=== PATIENT | female | born 2005 | race Two or more races ===

== ENCOUNTER 2024-10-05 07:21 | Outpatient (AMB) | payer OTHER, SELFPAY ==
[2024-10-05 07:25] VITALS: BP 98/60; BMI 33.2
--- NOTE | 2024-10-05 07:25 | MHC.OFFVIS ---
Vital Signs 10/05/24 07:25 Height 5 ft Weight 170 lb BMI 33.2 BP 98/60 Intake Visit Reasons: control consult Caustic Loader Required: No Information Interpreted: non-clinical & clinical Accompanied by: Self / Same As Patient Allergies No Known Allergies Allergy (Verified 10/05/24 07:27) Is last menstrual period known: Yes Last menstrual period: 08/17/24 HPI Comments Details: Presenting discuss different options of control. 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[employer] [place] Sexually active: Yes Sexual orientation: Straight/Heterosexual Gender identity: Female Female Reproductive History Menstrual Age of Menarche: 7 Duration of menses: 8-10 days Date of last menstrual period: 08/17/24 control method: implanted Total pregnancies: 0 Review of Systems Const All systems reviewed & are unremarkable except as noted in HPI and below Physical Exam Vital Signs: Last Vital Signs BP 98/60 10/05/24 07:25 BMI result Body Mass Index 33.2 General: Yes no CVA tenderness External Female Exam: normal external appearance and normal appearance of the urethra Speculum Exam - Vagina: normal appearance of the vagina, normal palpation, no lesions and no masses Speculum Exam - Cervix: normal appearance of the cervix, normal palpation, no lesions, no masses and nontender Bimanual exam- vagina & uterus: normal bimanual exam, normal palpation, uterine size normal, normal palpation, uterine shape normal, No Cervical tenderness present and non-tender Bimanual Exam- Adnexa, other: normal adnexae Back/Spine/Pelvis Back: no CVA tenderness Results AMB Test Urine AMB Test Urine Negative Last Edit by Nancie Stewart CMA on 10/05/24 07:39 Results Reviewed Results Reviewed: Laboratory Last Values Tst Clinic Negative 10/05/24 07:38 Assessment & Plan Assessment & Plan (1) Family planning: Code(s): Z30.09 - Encounter for other general counseling and advice on contraception Category: Social Hx Plan: Discussed with the patient the different options of control including control pills/Nuvaring, DMPA, different types of IUD ?s ( cu vs progesterone) , sterilization. All the pros, cons, risks and benefits of each were discussed with the patient. The patient decided to go ahead with Mirena IUD, so a more detailed discussion was carried on including mechanism of action, risks (infection, uterine perforation, failure with ectopic , septic AB, ovarian cyst and pelvic pain, increased breast cancer risk and others) benefits (efficient contraceptive method, others), GC/CG were taken and the patient was asked to schedule Nexplanon removal/Mirena IUD insertion prior to expiration date of her Nexplanon in October 2024. All questions answered, the patient verbalized understanding Orders: Orders AMB HCG Urine Test Today Z32.02 - Encounter for test, result negative Coding Level of Care Code New Pt Level 3 (70097) Diagnoses Family planning Z30.09
== END 2024-10-05 08:03 | disposition home or self-care (01) ==
LOC: HO.HWS 07:21
PROVIDERS: Visit Provider Obstetrics & Gynecology
DX: Z32.02 Encounter for pregnancy test, result negative (principal); Z30.09 Encounter for other general counseling and advice on contraception
CPT/HCPCS: 99203

== ENCOUNTER 2024-10-05 07:21 | Outpatient (REF) | payer OTHER, SELFPAY ==
[2024-10-06 15:31] LABS: CT PCR NOT DETECTED (Not Detect.); NG PCR NOT DETECTED (Not Detect.)
== END 2024-10-05 07:22 | disposition home or self-care (01) ==
LOC: HO.LNP 07:21
PROVIDERS: Visit Provider Obstetrics & Gynecology
DX: Z30.09 Encounter for other general counseling and advice on contraception (principal); Z32.02 Encounter for pregnancy test, result negative
CPT/HCPCS: 81025; 87491; 87591

== ENCOUNTER 2024-10-13 15:34 | Outpatient (AMB) | payer OTHER, SELFPAY ==
--- OUTSIDE RECORDS SUMMARY | 2024-10-13 15:36 | XMS_ITS ---
Author Name [facility] Organization Unknown Care Team Organization Name Specialty Phone Email Start Date End Da te [facility] Dafne Alvarenga MD Primary Care 05/28/2022 11/09/2023 [facility] Termed, PROVIDER Primary Care 01/28/202210/21
--- NOTE | 2024-10-13 15:43 | A.OFFVIS_ITS ---
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 The following possible complications were discussed with the patient: Intrauterine , Ectopic , Sepsis, Pelvic Infection, Irregular Bleeding and Amenorrhea, Perforation, Expulsion, Ovarian Cysts, Breast Cancer, The following adverse effects were discussed with the patient: alteration of menstrual bleeding pattern, including: unscheduled uterine bleeding decreased uterine bleeding increased scheduled uterine bleeding female genital tract bleeding ,amenorrhea , genital discharge , vulvovaginitis , breast pain , benign ovarian cyst and associated complications , dysmenorrhea , Gastrointestinal disorders abdominal/pelvic pain, headache/migraine , back pain , acne , depression Alternative options were discussed with the patient including but not limited: control pills, patch, NuvaRing, Depo-medroxyprogesterone acetate, Nexplanon, copper IUD, sterilization, vasectomy, others The procedure was explained in detail to patient , at the end patient signed the informed consent obtained. A no touch technique was used throughout the procedure. A speculum was placed into vagina and cervix was cleaned with betadine). A tenaculum was placed. A plastic sound was advanced through the external and internal os until it reached the fundus of the uterus, the depth was 8 cm. The sound was then withdrawn. The IUD was loaded in a sterile manner and advanced into position. The string was visualized and cut to 3 cm. Tenaculum site hemostatic. All instruments removed from vagina. Patient tolerated the procedure well. NO complications were noted. Patient was instructed to call for fever over 100.4, significant pain unrelieved by Motrin, IUD expulsion, heavy bleeding, or abnormal discharge. In addition, the following clinical considerations were discussed with the patient to call for removal: A stroke or heart attack ,Very severe or migraine headaches ,Unexplained fever ,Yellowing of the skin or whites of the eyes, as these may be signs of serious liver problems , or suspected , Pelvic pain or pain during sex ,HIV positive seroconversion in herself or her partner , Possible exposure to sexually transmitted infections Unusual vaginal discharge or genital sores , severe vaginal bleeding or bleeding that lasts a long time, or if she misses a menstrual period, Inability to feel Mirena's threads Counseled the patient that the IUD does not protect against STI's, recommended use of condoms for the first 7 days post insertion and explained to the patient that condoms are recommended for patients at risk for sexually transmitted infections. Informed the patient that Mirena IUD is FDA approved for 8 years for contraception for 5 years for the treatment of heavy menses Instructed the patient to schedule a Follow up appointment in 4 to 6 weeks following insertion. This note was generated with a voice recognition program. Some errors may have been overlooked during the review of this note. Sometimes these errors may affect the content or meaning of a given sentence. 51550-DUD Insertion Procedure code (CPT) selection complete Contraception Insert/Removal Details Details: Counseling/Consent: After discussing with the patient the risks of the procedure including bleeding, infection, scar tissue formation, , possible injury to blood vessels or nerves, chronic arm pain, blood transfusion, and irregular unpredictable bleeding Preopdx: Requesting Nexplanon removal Op: Nexplanon Removal Post op dx: same EBL= 10 cc Procedure: After discussing with the patient the risks of the procedure including bleeding, infection, scar tissue formation, the patient signed the consent and agreed with the plan; all questions answered. The patient was then put in the dorsal supine position with Left arm in which Nexplanon is located exposed. Then the area was scrubbed with betadine. Nexplanon was located next by palpation and the end closest to the elbow was marked with a sterile marker. 5cc 1% Xylocaine was used to anesthetize the area at the site near the tip of Nexplanon. Next, a 3 mm incision in the longitudinal direction of the arm at the tip of the implant was made and the Nexplanon was pushed toward the incision until the tip was visible. The implant was grasped with a curved mosquito forceps and pulled out gently. Then incision was closed with steri-strips approximating the edges and an adhesive bandage was applied. A pressure bandage was applied with sterile gauze to minimize bruising. At the end explained to the patient that she is not covered with contraception anymore and recommended for her to use another contraceptive method. Discharge instructions: Patient was instructed to call if any of the following occurs :temperature above 100.4, pain at the side of the incision, redness, discharge or gapping, arm pain or bleeding. All questions answered patient verbalized understanding . This note was generated with a voice recognition program. Some errors may have been overlooked during the review of this note. Sometimes these errors may affect the content or meaning of a given sentence. 64628 - Removal Office Meds Mirena 21 mcg/24 hr (up to 8 years) 52 mg intrauterine device Performing Provider: Trent Biggs MD [place] [facility] [place] [facility] Documented (not given) by: Trent Biggs MD on 10/13/24 16:08 Dose Route Admin Location Dispensed Lot Number Expiration Date NDC Product Ambassador 1 device intrauterine ea Total Dispensed Waste n/a n/a Assessment & Plan Assessment & Plan (1) Nexplanon removal: Code(s): Z30.46 - Encounter for surveillance of implantable subdermal contraceptive Category: Medical Plan: Nexplanon removed, see procedure (2) Encounter for insertion of Mirena IUD: Code(s): Z30.430 - Encounter for insertion of intrauterine contraceptive device Category: Medical Plan: Mirena IUD inserted, see procedure Orders: Orders AMB IUD Insertion/Removal - Practice Supplied Today Z30.430 - Encounter for insertion of intrauterine contraceptive device Medications: New Mirena (levonorgestrel) 1 device intrauterine ONCE 1 ea 0RF Mirena IUD insertion NS Z30.430 - Encounter for insertion of intrauterine contraceptive device Coding Level of Care Code Procedure Only Diagnoses Nexplanon removal Z30.46 Encounter for insertion of Mirena IUD Z30.430 CPT Codes Details - CPT: 22939-LSA Insertion ([id number]) Details - Contraception: 06738 - Removal ([id number])
== END 2024-10-13 16:10 | disposition home or self-care (01) ==
LOC: HO.HWS 15:34
PROVIDERS: Visit Provider Obstetrics & Gynecology
DX: Z30.46 Encounter for surveillance of implantable subdermal contraceptive (principal); Z30.430 Encounter for insertion of intrauterine contraceptive device
CPT/HCPCS: 11982; 58300

== ENCOUNTER → 2024-10-13 15:34 | Outpatient (BNVA) | payer OTHER, SELFPAY | PROVIDERS: Visit Provider Obstetrics & Gynecology | DX: Z30.430 Encounter for insertion of intrauterine contraceptive device (principal) | CPT/HCPCS: 11982; 58300; J7298 ==

== ENCOUNTER 2024-12-02 08:28 | Outpatient (AMB) | payer OTHER, SELFPAY ==
--- NOTE | 2024-12-02 08:29 | A.OFFPC_ITS ---
Vital Signs 12/02/24 08:44 Height 5 ft 1.18 in Weight 176 lb 6 oz BMI 33.1 BP 110/78 Blood Pressure Location Lt brachial Position Sitting Respiration 16 Pulse 90 Pulse Source Pulse Oximeter Temp 98.1 F Temp Source Oral Pulse Oximetry (%) 98 Oxygen Delivery Method Room Air Intake Visit Reasons: SIGNALS ANALYST-Anxiety Intake Note: pt here today to treat anxiety she gets anxious in the mornings and end up throwing up. Adolescent Medicine Specialist Required: No Accompanied by: Self / Same As Patient Allergies No Known Allergies Allergy (Verified 12/02/24 08:30) Tobacco use date assessed: 12/02/24 Dental Screening Dental Screen Date: 12/02/24 Did you have a dental visit in the last 12 months?: Yes Did you have a dental problem in the last 6 months where you did not have access to dental care?: No Was dental information given to patient?: Patient has dentist HPI HPI Comments History of Present Illness Details History of Present Illness The patient is a 19 year old female presenting with increased anxiety symptoms. Generalized Anxiety Disorder: - Long-standing anxiety with recent wors ening, impacting daily functioning. - Symptoms have increased due to changes in workplace environment and personal relationship stress. Possible Bipolar Disorder: - Describes mood instability, sleep dist urbances, episodes of high energy, and irritability suggesting mood disorder history. Health Maintenance - Chlamydia and gonorrhea screening nega tive as of 10/05/2024. - Transitioned from Nexplanon to Mirena IUD. Review of Systems - Psychiatric: Reports significant anxie ty and depressive symptoms. 10-point ROS reviewed and negative excep t as noted in HPI Allergies - Reports childhood allergy to Robitussi n. Medications Medication History - Limited therapy with one in-person the rapist and one remote therapist. - Previously noncompliant or minimal eng agement due to personal discomfort with treatment types. Current Substance Use Substance Use History Past Medical History - Generalized Anxiety Disorder - Possible Bipolar Disorder Past Surgical History Family History - Mother: Hypertension, Bipolar Disorder (suspected) - Maternal Grandmother: Diabetes, Heart Disease - Uncle: Possibly diagnosed with Bipolar Disorder Social History - Never used tobacco. 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 - Lives with parents and brother. - Stress from a previous job in [employer] to workplace bullying and issues with a prior relationship. Physical Exam General: No apparent distress. Alert and oriented x 3. Head: Normocephalic, atraumatic Eyes: Pupils equal, round, and reactive to light. Extraocular movements intact Throat: Clear. No abnormalities noted. ropharynx clear. Mucus membranes moist Neck: Supple. No lymphadenopathy. eft anterior descending artery distention. No jugular vein distention. No bruit. Cardiovascular: Regular rate and rhythm. Normal S1 and S2. No murmurs. murmurs, rubs, or gallops Lungs: Clear to auscultation bilaterally. Breath sounds equal bilaterally. No rales, ronchi, or wheezes. Abdomen: Non-tender. Non-distended. Bowel sounds auscultated. No masses or organomegaly. hepatosplenomegaly. No mass/rebound/guarding Extremities: No cyanosis, clubbing, or edema. lubbing, cyanosis, and edema. 2+ pulses Neuro: Cranial nerves II-XII grossly intact. Motor/sensory intact. Reflexes 2+. Gait normal. Skin: Warm, dry, and intact. No rash. Discussion Notes A comprehensive discussion with the patient addressed the exacerbation of anxiety symptoms, potential bipolar disorder, and her reservations about medication due to maternal experiences. I proposed a referral to behavioral health for further bipolar disorder evaluation and possible initiation of appropriate therapy. I explained the temporary use of benzodiazepines, such as 0.5 mg for acute anxiety relief, and recommended routine laboratory testing to establish baseline health parameters. Plan 1. Generalized Anxiety Disorder - Referral for cognitive behavioral ther apy. - Temporary benzodiazepine prescription for acute anxiety management. 2. Possible Bipolar Disorder - Behavioral health referral for further psychiatric evaluation. Treatment Summary Anticapatory Guidance - Engage in stress-reducing activities a nd improve sleep hygiene. - Reach out to behavioral health to ensu re mental health needs are being addressed. Patient Instructions - Download and use relaxation aids or ap ps for anxiety reduction. - Report any significant changes in mood or behavior immediately. - Follow through with all laboratory brian ts and scheduled appointments. - Avoid self-medicating or making any ab rupt changes to routine without consultation. - Stay in communication with your suppor t system about your emotional well- being. [facility] Family History (Updated 12/02/24 @ 08:42 by Jailene Ramirez MA) Mother HTN (hypertension) Maternal Grandfather Diabetes Maternal Grandmother Heart disease Paternal Grandfather Diabetes Father No problems noted. Social History Household Members: Family Housing: House Alcohol intake: current Alcohol intake frequency: holidays/special occasions only Patient Tobacco Use Status: Current someday Tobacco user Cigarettes Per Day: 1 Substance Use Type: Marijuana service: No Current occupational status: employed Sexual orientation: Straight/Heterosexual Gender identity: Female Cognitive needs: No Hearing needs: No Vision needs: No Female Reproductive History Menstrual Age of Menarche: 7 Questionnaire PHQ-9 Over the last 2 weeks, how often have you been bothered by any of the following problems? 1. Little interest or pleasure in doing things: not at all 2. Feeling down, depressed, or hopeless: not at all 3. Trouble falling or staying asleep, or sleeping too much: not at all 4. Feeling tired or having little energy: not at all 5. Poor appetite or overeating: not at all 6. Feeling bad about yourself - or that you are a failure or have let yourself or your family down: not at all 7. Trouble concentrating on things, such as reading the newspaper or watching television: not at all 8. Moving or speaking so slowly that other people could have noticed. Or the opposite - being so fidgety or restless that you have been moving around a lot more than usual: not at all 9. Thoughts that you would be better off or of hurting yourself in some way: not at all Total score: 0 Source: Developed by Drs. Saqib Whittington, Quyen Anaya, Kenney Joiner and colleagues, with an educational elo from [employer]. Thrive Questionnaire Date Thrive assessed: 11/29/24 I am a: Patient What is your living situation today?: I have a steady place to live Within the past 12 months, did the food you bought not last and you didn't have the money to get more?: I choose not to answer this question Within the past 12 months, did you worry whether your food would run out before you got money to buy more?: I choose not to answer this question Do you have trouble paying for medicines?: No Do you have trouble getting transportation to medical appointments?: No Do you have trouble paying your heating and electricity bill?: No Do you have trouble taking care of your child, family member or friend?: No Do you have trouble with day-to-day activities such as bathing, preparing meals, shopping, managing finances, etc.?: No Are you currently unemployed and looking for a job?: No Are you interested in more education?: Yes Please select the resources that you would like help with: Education Currently or been in a relationship where the following occur: I choose not to answer THRIVE Score: 0 AUDIT C Alcohol Use Questionnaire (AUDIT-C) 1. How often do you have a drink containing alcohol?: Monthly or less 2. How many drinks containing alcohol do you have on a typical day when you are drinking?: 3 or 4 3. How often do you have six or more drinks on one occasion?: Less than monthly Total Score: 3 SHAYAN-7 AMB Questionnaire SHAYAN-7 Date SHAYAN - 7 assessed: 12/02/24 Feeling nervous, anxious, or on edge: 3 = Nearly every day Not being able to stop or control worryin = Nearly every day Worrying too much about different things: 3 = Nearly every day Trouble relaxin = Nearly every day Being so restless that it is hard to sit still: 3 = Nearly every day Becoming easily annoyed or irritable: 3 = Nearly every day Feeling afraid as if something awful might happen: 3 = Nearly every day Total SHAYAN-7 score (0-4 normal; 5-9 mild; 10-14 moderate; 15-21 severe): 21 Source: Developed by Drs. Saqib Whittington, Quyen Anaya, Kenney Joiner and colleagues, with an educational elo from [employer]. SHAYAN-7 Assessment Billing SHAYAN-7 Assessment Tool: SHAYAN-7 Assessment 70356 Physical exam (Primary Care) Tobacco/Smoking Status: Tobacco use Status Tobacco use date assessed 12/02/24 12/02/24 08:35 Patient Tobacco Use Status Never used Tobacco 12/02/24 08:35 PHQ-9: PHQ-9 Score PHQ-9: Total score 0 12/02/24 08:35 Thrive Assessment: Date of Thrive Assessment Date Thrive assessed 11/29/24 12/02/24 08:35 Currently or been in a relationship where the following occur: I choose not to answer Coding Level of Care Code New Pt Level 3 (39603) Diagnoses Encounter to establish care with new provider Z76.89 Routine lab draw Z01.89 Encounter for screening, unspecified Z13.9 Hypertension screen Z13.6 Screening for HIV (human immunodeficiency virus) Z11.4 Screening for depression Z13.31 Screening for diabetes mellitus Z13.1 Screening for lipoid disorders Z13.220 Adjustment disorder with anxiety F43.22 Additional Codes SHAYAN-7 Assessment Billing - SHAYAN-7 Assessment Tool: SHAYAN-7 Assessment 41648 ([id number]) Assessment & Plan Assessment & Plan (1) Encounter to establish care with new provider: Code(s): Z76.89 - Persons encountering health services in other specified circumstances (2) Routine lab draw: Code(s): Z01.89 - Encounter for other specified special examinations (3) Encounter for screening, unspecified: Code(s): Z13.9 - Encounter for screening, unspecified (4) Hypertension screen: Code(s): Z13.6 - Encounter for screening for cardiovascular disorders (5) Screening for HIV (human immunodeficiency virus): Code(s): Z11.4 - Encounter for screening for human immunodeficiency virus [HIV] (6) Screening for depression: Code(s): Z13.31 - Encounter for screening for depression (7) Screening for diabetes mellitus: Code(s): Z13.1 - Encounter for screening for diabetes mellitus (8) Screening for lipoid disorders: Code(s): Z13.220 - Encounter for screening for lipoid disorders (9) Adjustment disorder with anxiety: Code(s): F43.22 - Adjustment disorder with anxiety Plan Orders: Orders Comprehensive Met. Panel Today Z76.89 - Persons encountering health services in other specified circumstances Hepatitis B Surface Antigen Today Z76. - Persons encountering health services in other specified circumstances Lipid Panel Today Z76. - Persons encountering health services in other specified circumstances Syphilis Screen Today Z76. - Persons encountering health services in other specified circumstances UA CC w/rflx Micro + Cult Today Z76. - Persons encountering health services in other specified circumstances Vitamin D 1,25 dihydroxy Today Z76. - Persons encountering health services in other specified circumstances TSH reflex Free T4 Today F43.22 - Adjustment disorder with anxiety, Z76.89 - Persons encountering health services in other specified circumstances Complete Blood Count Auto Diff Today Z76. - Persons encountering health services in other specified circumstances Hemoglobin A1c Today Z76.89 - Persons encountering health services in other specified circumstances Hepatitis B Surface Antibody Today Z76.89 - Persons encountering health services in other specified circumstances Hepatitis C Antibody Today Z76.89 - Persons encountering health services in other specified circumstances HIV Ab/Ag Today Z76.89 - Persons encountering health services in other specified circumstances Referrals Behavioral Health Referral F43.22 - Adjustment disorder with anxiety
[2024-12-02 08:44] VITALS: BP 110/78; PULSE 90; RESP 16; TEMP 36.7; O2SAT 98; BMI 33.1
== END 2024-12-02 09:16 | disposition home or self-care (01) ==
LOC: HO.HMCFMS 08:28
PROVIDERS: Visit Provider Student in an Organized Health Care Education/Training Program
DX: F43.22 Adjustment disorder with anxiety (principal)

== ENCOUNTER 2024-12-02 08:28 | Outpatient (REF) | payer OTHER, SELFPAY ==
[2024-12-02 18:02] LABS: MANUAL DIFF FLAG NO
[2024-12-02 18:03] LABS: Appearance Urine Clear; Glucose Urine UA Negative (Negative); PH 6.0 (5.0-9.0); Specific Gravity - Urine 1.010 (1.005-1.025)
[2024-12-02 18:04] LABS: Hematocrit 42.0 % (37.0-47.0); Hemoglobin 14.4 g/dl (12.0-16.0); Imm Gran Abs Auto 0.06 X10*3/uL (0.00-0.03); Imm Gran Pct Auto 0.6 % (0.0-0.4); Lymphocytes Absolute Auto 3.1 X10*3/uL (1.2-4.9); Mean Corpuscular HGB Conc 34.3 g/dl (31.0-35.0); Mean Corpuscular Hemoglobin 28.9 pg (27.0-33.0); Mean Corpuscular Volume 84.2 fL (80.0-98.0); NRBC Abs Auto 0.000 X10*3/uL (0.0-0.012); NRBC Pct Auto 0.0 /100WBC (0.0-0.2); Platelet Count 297 X10*3/uL (160-400); Red Blood Count 4.99 X10*6/uL (4.20-5.50); White Blood Count 10.4 X10*3/uL (4.8-10.8)
[2024-12-02 18:43] LABS: Alanine Aminotransferase 47 U/L (0-31); Albumin Level 5.1 g/dL (3.5-5.0); Alkaline Phosphatase 77 U/L (39-117); Anion Gap 13 (12-20); Aspartate Amino Transferase 42 U/L (5-31); Blood Urea Nitrogen 12 mg/dL (9-16); Calcium 10.1 mg/dL (8.4-10.2); Carbon Dioxide 28 mmol/L (22-29); Chloride 102 mmol/L (96-108); Cholesterol 167 mg/dL (<200); Estimated Glomerular Filt Rate > 60; HDL Cholesterol 36 mg/dL (>40); Potassium 3.9 mmol/L (3.3-5.1); Sodium 139 mmol/L (135-145); Total Protein 8.5 g/dL (6.5-8.0); Triglycerides 233 mg/dL (<150)
[2024-12-03 08:57] LABS: HBS Num1 5.34 mIU/mL (0-7.99); HBsAGNum1 0.47 S/CO (0.00-0.99); HIV Num 1 0.06 S/CO (0.00-0.99); Hepatitis B Surface Antigen Negative (Negative); ~HepC Num1 0.30 S/CO (0.00-0.79); ~Hepatitis B Surface Antibody NONREACTIVE (Nonreactive); ~Hepatitis C Antibody Nonreactive (Nonreactive)
[2024-12-03 09:24] LABS: Syphilis Screen Nonreactive (Nonreactive)
[2024-12-08 00:53] LABS: VITAMIN D (1,25 OH) D3 50 pg/mL; Vit D (1,25-Dihydroxy) Total 50 pg/mL (18-72); Vitamin D (1,25 OH) D2 <8 pg/mL
== END 2024-12-02 08:29 | disposition home or self-care (01) ==
LOC: HO.HKASLDS 08:28
PROVIDERS: Visit Provider Student in an Organized Health Care Education/Training Program
DX: Z76.89 Persons encountering health services in other specified circumstances (principal); Z01.89 Encounter for other specified special examinations; F43.22 Adjustment disorder with anxiety; Z13.6 Encounter for screening for cardiovascular disorders; Z11.4 Encounter for screening for human immunodeficiency virus [HIV]; Z13.1 Encounter for screening for diabetes mellitus; Z13.220 Encounter for screening for lipoid disorders; Z13.31 Encounter for screening for depression; Z13.39 Encounter for screening examination for other mental health and behavioral disorders
CPT/HCPCS: 36415; 80053; 80061; 81003; 82652; 83036; 84443; 85025; 86706; 86780; 86803; 87340; 87389; 96127

== ENCOUNTER 2024-12-12 13:55 | Outpatient (AMB) | payer OTHER, SELFPAY ==
[2024-12-12 14:01] VITALS: BP 126/84; PULSE 110; RESP 17; TEMP 36.9; O2SAT 98; BMI 33.6
--- NOTE | 2024-12-12 14:01 | A.OFFPC_ITS ---
Vital Signs 12/12/24 14:01 Height 5 ft 1.18 in Weight 179 lb 2 oz BMI 33.6 BP 126/84 Blood Pressure Location Lt brachial Position Sitting Respiration 17 Pulse 110 H Pulse Source Pulse Oximeter Temp 98.4 F Temp Source Oral Pulse Oximetry (%) 98 Oxygen Delivery Method Room Air Intake Visit Reasons: follow/up on meds Intake Note: pt here today to treat anxiety she gets anxious in the mornings and end up throwing up. Tap Dancer Required: No Accompanied by: Self / Same As Patient Allergies No Known Allergies Allergy (Verified 12/12/24 14:02) Tobacco use date assessed: 12/02/24 Dental Screening Dental Screen Date: 12/02/24 Did you have a dental visit in the last 12 months?: Yes Did you have a dental problem in the last 6 months where you did not have access to dental care?: No Was dental information given to patient?: Patient has dentist HPI HPI Comments History of Present Illness Details History of Present Illness The patient is a 19-year-old female presenting with anxiety and side effects from medication. Anxiety: - The patient reports increasing anxiety , which has been exacerbated recently, leading to episodes of crying and feeling overwhelmed. - She has previously taken two doses of medication during a job fair, which alleviated her anxiety without adverse effects. - Recently, taking the same dosage resul hernesto in sedation and impaired memory, suggesting a change in her response to the medication. Sedation and Drowsiness: - The patient experienced sedation and d rowsiness after taking her medication, which are known side effects. - She described feeling as though she wa s in a 'limbo purgatory' state, with difficulty staying awake and alert. Impaired Memory and Concentration: - The patient reported impaired memory a nd concentration, including difficulty remembering tasks and appointments. - These symptoms occurred after taking h er medication, indicating a possible side effect. Review of Systems - Neurological: Reports sedation, drowsi ness, impaired memory, and concentration difficulties. Denies headaches or dizziness. - Psychiatric: Reports increasing anxiet y and episodes of crying. Denies hallucinations or delusions. 10-point ROS reviewed and negative excep t as noted in HPI Physical Exam General: Well-appearing, in no acute distress. Vital signs: Within normal limits. HEENT: Normocephalic, atraumatic. PERRLA, EOMI. Conjunctiva clear, sclera anicteric. Oropharynx clear, mucous membranes moist. TMs intact bilaterally. Neck: Supple, no lymphadenopathy, no thyromegaly, no JVD or carotid bruits. Cardiovascular: RRR, normal S1/S2, no murmurs, rubs, or gallops. Peripheral pulses 2+ and symmetric. No edema. Respiratory: Lungs clear to auscultation bilaterally, no wheezes, rales, or rhonchi. Normal effort. Abdomen: Soft, non-tender, non-distended. Normoactive bowel sounds. No hepatosplenomegaly, no masses. MSK: Full range of motion, no joint swelling or deformity. Normal gait. Skin: Warm, dry, intact. No rashes, lesions, or pallor. Neuro: Alert and oriented x3. Cranial nerves II-XII intact. Strength 5/5 throughout. Sensation intact. Reflexes 2+ symmetric. Normal coordination and gait. Psych: Anxious mood, appropriate affect. Normal judgment and insight. Plan 1. Anxiety - Initiate treatment with escitalopram 1 0 mg daily, a selective serotonin re uptake inhibitor (SSRI), to manage anxiety symptoms. - Continue alprazolam as needed for acut e anxiety episodes, with a recommendation to reduce the dose to 0.5 mg. - Schedule follow-up in two weeks to ass ess response to treatment and adjust as necessary. 2. Sedation And Drowsiness - Advise the patient to reduce the dosag e of alprazolam to minimize sedation and drowsiness. - Monitor for any changes in sedation le vels with the new SSRI treatment. 3. Impaired Memory And Concentration - Monitor cognitive function and memory during the transition to escitalopram. - Advise the patient to report any persi stent or worsening cognitive symptoms. Discussion Notes I discussed with the patient the initiation of escitalopram at 10 mg daily to manage her anxiety, explaining that it is a selective serotonin reuptake inhibitor (SSRI) that helps maintain serotonin levels to reduce anxiety and depression. I advised her to continue using alprazolam as needed for acute anxiety episodes, but to reduce the dose to 0.5 mg to minimize sedation and drowsiness. We also discussed the potential side effects of escitalopram, including initial anxiety, and the importance of monitoring her response to the medication. I emphasized the need for a follow-up appointment in two weeks to evaluate her progress and make any necessary adjustments to her treatment plan. Patient Instructions - Take escitalopram 10 mg daily as presc ribed. - Use alprazolam only if needed for anxi ety, and limit to 0.5 mg per dose. - Monitor for any side effects, especial ly increased anxiety or sedation, and report them. - Attend follow-up appointment in two we eks to assess treatment response. PFSH Family History Mother HTN (hypertension) Maternal Grandfather Diabetes Maternal Grandmother Heart disease Paternal Grandfather Diabetes Father No problems noted. Social History Household Members: Family Housing: House Alcohol intake: current Alcohol intake frequency: holidays/special occasions only Patient Tobacco Use Status: Current someday Tobacco user Cigarettes Per Day: 1 Substance Use Type: Marijuana service: No Current occupational status: employed Sexual orientation: Straight/Heterosexual Gender identity: Female Cognitive needs: No Hearing needs: No Vision needs: No Female Reproductive History Menstrual Age of Menarche: 7 Questionnaire PHQ-9 Over the last 2 weeks, how often have you been bothered by any of the following problems? 1. Little interest or pleasure in doing things: not at all 2. Feeling down, depressed, or hopeless: not at all 3. Trouble falling or staying asleep, or sleeping too much: not at all 4. Feeling tired or having little energy: not at all 5. Poor appetite or overeating: not at all 6. Feeling bad about yourself - or that you are a failure or have let yourself or your family down: not at all 7. Trouble concentrating on things, such as reading the newspaper or watching television: not at all 8. Moving or speaking so slowly that other people could have noticed. Or the opposite - being so fidgety or restless that you have been moving around a lot more than usual: not at all 9. Thoughts that you would be better off or of hurting yourself in some way: not at all Total score: 0 Source: Developed by Drs. Saqib Whittington, Quyen Anaya, Kenney Joiner and colleagues, with an educational elo from [employer]. Thrive Questionnaire Date Thrive assessed: 11/29/24 I am a: Patient What is your living situation today?: I have a steady place to live Within the past 12 months, did the food you bought not last and you didn't have the money to get more?: I choose not to answer this question Within the past 12 months, did you worry whether your food would run out before you got money to buy more?: I choose not to answer this question Do you have trouble paying for medicines?: No Do you have trouble getting transportation to medical appointments?: No Do you have trouble paying your heating and electricity bill?: No Do you have trouble taking care of your child, family member or friend?: No Do you have trouble with day-to-day activities such as bathing, preparing meals, shopping, managing finances, etc.?: No Are you currently unemployed and looking for a job?: No Are you interested in more education?: Yes Please select the resources that you would like help with: Education Currently or been in a relationship where the following occur: I choose not to answer THRIVE Score: 0 AUDIT C Alcohol Use Questionnaire (AUDIT-C) 1. How often do you have a drink containing alcohol?: Monthly or less 2. How many drinks containing alcohol do you have on a typical day when you are drinking?: 3 or 4 3. How often do you have six or more drinks on one occasion?: Less than monthly Total Score: 3 SHAYAN-7 AMB Questionnaire SHAYAN-7 Date SHAYAN - 7 assessed: 12/02/24 Feeling nervous, anxious, or on edge: 3 = Nearly every day Not being able to stop or control worryin = Nearly every day Worrying too much about different things: 3 = Nearly every day Trouble relaxin = Nearly every day Being so restless that it is hard to sit still: 3 = Nearly every day Becoming easily annoyed or irritable: 3 = Nearly every day Feeling afraid as if something awful might happen: 3 = Nearly every day Total SHAYAN-7 score (0-4 normal; 5-9 mild; 10-14 moderate; 15-21 severe): 21 Source: Developed by Drs. Saqib Whittington, Quyen Anaya, Kenney Joiner and colleagues, with an educational elo from [employer]. SHAYAN-7 Assessment Billing SHAYAN-7 Assessment Tool: SHAYAN-7 Assessment 11451 Physical exam (Primary Care) Vital Signs: Last Vital Signs Temp 98.4 F 12/12/24 14:01 Pulse 110 H 12/12/24 14:01 Resp 17 12/12/24 14:01 BP 126/84 12/12/24 14:01 Pulse Ox 98 12/12/24 14:01 Oxygen Delivery Method Room Air 12/12/24 14:01 BMI result Body Mass Index 33.6 Tobacco/Smoking Status: Tobacco use Status Tobacco use date assessed 12/02/24 12/12/24 14:06 Patient Tobacco Use Status Current someday Tobacco 12/12/24 14:06 PHQ-9: PHQ-9 Score PHQ-9: Total score 0 12/12/24 14:06 Thrive Assessment: Date of Thrive Assessment Date Thrive assessed 11/29/24 12/12/24 14:06 Currently or been in a relationship where the following occur: I choose not to answer Coding Level of Care Code Est Pt Level 3 (11735) Diagnoses Adjustment disorder with anxiety F43.22 Tachycardia R00.0 Acute memory impairment R41.3 Drowsiness R40.0 Additional Codes SHAYAN-7 Assessment Billing - SHAYAN-7 Assessment Tool: SHAYAN-7 Assessment 99874 ([id number]) Assessment & Plan Assessment & Plan (1) Adjustment disorder with anxiety: Code(s): F43.22 - Adjustment disorder with anxiety (2) Tachycardia: Code(s): R00.0 - Tachycardia, unspecified (3) Acute memory impairment: Code(s): R41.3 - Other amnesia (4) Drowsiness: Code(s): R40.0 - Somnolence Plan Medications: New escitalopram oxalate 10 mg PO DAILY 14 tabs 0RF
== END 2024-12-12 14:20 | disposition home or self-care (01) ==
LOC: HO.HMCFMS 13:55
PROVIDERS: PCP Student in an Organized Health Care Education/Training Program; Visit Provider Student in an Organized Health Care Education/Training Program
DX: F43.22 Adjustment disorder with anxiety (principal); R00.0 Tachycardia, unspecified; R41.3 Other amnesia; R40.0 Somnolence

== ENCOUNTER → 2024-12-12 13:55 | Outpatient (BNVA) | payer OTHER, SELFPAY | PROVIDERS: PCP Student in an Organized Health Care Education/Training Program; Visit Provider Student in an Organized Health Care Education/Training Program | DX: F43.22 Adjustment disorder with anxiety (principal); R00.0 Tachycardia, unspecified; R41.3 Other amnesia; R40.0 Somnolence; Z13.30 Encounter for screening examination for mental health and behavioral disorders, unspecified | CPT/HCPCS: 96127 ==

== ENCOUNTER 2024-12-26 07:45 | Outpatient (AMB) | payer OTHER, SELFPAY ==
--- NOTE | 2024-12-26 07:46 | MHC.OFFVIS ---
Vital Signs 12/26/24 07:48 Height 5 ft 1 in Weight 178 lb BMI 33.6 Intake Visit Reasons: iud check Granite Polisher Required: No Information Interpreted: non-clinical & clinical Elevator Constructor Hydraulic: Elevator Constructor Hydraulic Present (Nancie AMEZQUITA) Accompanied by: Self / Same As Patient Allergies No Known Allergies Allergy (Verified 12/26/24 07:49) Is last menstrual period known: No (mirena) HPI Comments Details: The patient is presenting for IUD check after 1 st period following IUD insertion. The patient has no complaints periods are normal, not painful, and flow is normal. [facility] Family History Mother HTN (hypertension) Maternal Grandfather Diabetes Maternal Grandmother Heart disease Paternal Grandfather Diabetes Father No problems noted. 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 [employer] Sexual orientation: Straight/Heterosexual Gender identity: Female Cognitive needs: No Hearing needs: No Vision needs: No Female Reproductive History Menstrual Age of Menarche: 7 control method: progestin IUCD Review of Systems Const All systems reviewed & are unremarkable except as noted in HPI and below Physical Exam Vital Signs: BMI result Body Mass Index 33.6 General: Yes no CVA tenderness External Female Exam: normal external appearance and normal appearance of the urethra Speculum Exam - Vagina: normal appearance of the vagina, normal palpation, no lesions and no masses Speculum Exam - Cervix: normal appearance of the cervix, normal palpation, no lesions, no masses, nontender and Other cervical findings present (IUD string in place) Bimanual exam- vagina & uterus: normal bimanual exam, normal palpation, uterine size normal, normal palpation, uterine shape normal, No Cervical tenderness present and non-tender Bimanual Exam- Adnexa, other: normal adnexae Back/Spine/Pelvis Back: no CVA tenderness Assessment & Plan Assessment & Plan (1) IUD check up: Code(s): Z30.431 - Encounter for routine checking of intrauterine contraceptive device Category: Medical Plan: UPT done in the office was negative. Discussed with the patient the finding on physical exam, IUD string in place, the patient was reassured. Instructions given to patient to call in case of temperature above 100.4, severe cramping/pelvic pain, abnormal discharge or abnormal uterine bleeding or if she misses her menstrual cycle. Otherwise follow-up at her annual exam appointment. All questions answered, the patient verbalized understanding. Coding Level of Care Code Est Pt Level 3 (11874) Diagnoses IUD check up Z30.431
[2024-12-26 07:48] VITALS: BMI 33.6
== END 2024-12-26 08:04 | disposition home or self-care (01) ==
LOC: HO.HWS 07:45
PROVIDERS: PCP Student in an Organized Health Care Education/Training Program; Visit Provider Obstetrics & Gynecology
DX: Z30.431 Encounter for routine checking of intrauterine contraceptive device (principal)
CPT/HCPCS: 99213

== ENCOUNTER → 2024-12-26 07:45 | Outpatient (BNVA) | payer OTHER, SELFPAY | PROVIDERS: PCP Student in an Organized Health Care Education/Training Program; Visit Provider Obstetrics & Gynecology | DX: Z30.431 Encounter for routine checking of intrauterine contraceptive device (principal); F43.22 Adjustment disorder with anxiety; E78.1 Pure hyperglyceridemia; E78.6 Lipoprotein deficiency; E66.811 Obesity, class 1; R74.8 Abnormal levels of other serum enzymes; Z68.33 Body mass index [BMI] 33.0-33.9, adult | CPT/HCPCS: 96127 ==

== ENCOUNTER 2024-12-26 08:34 | Outpatient (AMB) | payer OTHER, SELFPAY ==
[2024-12-26 08:35] VITALS: BP 122/77; PULSE 76; RESP 16; TEMP 36.6; O2SAT 99; BMI 33.7
--- NOTE | 2024-12-26 08:35 | A.OFFPC_ITS ---
Vital Signs 12/26/24 08:35 Height 5 ft 1 in Weight 178 lb 2 oz BMI 33.7 BP 122/77 Blood Pressure Location Lt brachial Position Sitting Respiration 16 Pulse 76 Pulse Source Pulse Oximeter Temp 98 F Temp Source Oral Pulse Oximetry (%) 99 Oxygen Delivery Method Room Air Intake Visit Reasons: follow up Intake Note: pt here today to treat anxiety she gets anxious in the mornings and end up throwing up. Surgery Consultant Required: No Accompanied by: Self / Same As Patient Allergies No Known Allergies Allergy (Verified 12/26/24 08:36) Tobacco use date assessed: 12/02/24 Dental Screening Dental Screen Date: 12/02/24 Did you have a dental visit in the last 12 months?: Yes Did you have a dental problem in the last 6 months where you did not have access to dental care?: No Was dental information given to patient?: Patient has dentist HPI HPI Comments History of Present Illness Details History of Present Illness The patient is a 19-year-old female presenting with anxiety and concerns about lab results. Anxiety: - The patient reports feeling more jaylan juan and less irritable since starting Lexapro two weeks ago. - She has not used olazepam and reports improved sleep and appetite. - Initial side effects included vomiting , which has since resolved. Elevated Liver Enzymes: - Lab results indicate slightly elevated liver enzymes, attributed to elevated triglycerides and low HDL cholesterol. - A liver ultrasound is recommended to a [facility] structural and physical condition. Elevated Triglycerides: - The patient has elevated triglycerides , contributing to liver enzyme elevation. - A meat service team member referral is suggested t o manage dietary habits. Low HDL Cholesterol: - Low HDL cholesterol is noted, which ma y affect lipid management. - Lifestyle modifications, including exe rcise, are recommended. Review of Systems - Psychiatric: Reports feeling more maxwell nced and less irritable. Denies current use of olazepam. - Gastrointestinal: Denies vomiting sinc e initial side effects resolved. - General: Reports improved sleep and ap petite. 10-point ROS reviewed and negative excep t as noted in HPI Past Medical History - Anxiety, currently managed with Lexapr o. Health Maintenance - Polisher Brass referral for dietary coun seling. - Liver ultrasound to assess liver condi tion. - Exercise recommendation: 30-minute wal ks daily to achieve 150 minutes of moderate intensity exercise weekly. Physical Exam General: Well-appearing, in no acute distress. Vital signs: Within normal limits. HEENT: Normocephalic, atraumatic. PERRLA, EOMI. Conjunctiva clear, sclera anicteric. Oropharynx clear, mucous membranes moist. TMs intact bilaterally. Neck: Supple, no lymphadenopathy, no thyromegaly, no JVD or carotid bruits. Cardiovascular: RRR, normal S1/S2, no murmurs, rubs, or gallops. Peripheral pulses 2+ and symmetric. No edema. Respiratory: Lungs clear to auscultation bilaterally, no wheezes, rales, or rhonchi. Normal effort. Abdomen: Soft, non-tender, non-distended. Normoactive bowel sounds. No hepatosplenomegaly, no masses. MSK: Full range of motion, no joint swelling or deformity. Normal gait. Skin: Warm, dry, intact. No rashes, lesions, or pallor. Neuro: Alert and oriented x3. Cranial nerves II-XII intact. Strength 5/5 throughout. Sensation intact. Reflexes 2+ symmetric. Normal coordination and gait. Psych: Appropriate mood and affect. Normal judgment and insight. Mood appears improved with decreased irritability. Plan 1. Anxiety - Continue Lexapro and monitor for furth er mood stabilization. - Follow-up in two weeks to assess medic ation efficacy and dosage adjustment if necessary. 2. Elevated Liver Enzymes - Recommend liver ultrasound to evaluate structural integrity. - Monitor liver function tests periodica lly. 3. Elevated Triglycerides - Referral to a meat service team member for dietary management. - Encourage lifestyle modifications to r educe triglyceride levels. 4. Low Hdl Cholesterol - Recommend lifestyle changes, including increased physical activity. - Monitor lipid profile regularly. Discussion Notes I discussed with the patient the importance of continuing Lexapro for anxiety management and the need for a follow-up in two weeks to evaluate its effectiveness and consider dosage adjustments. We reviewed her lab results, noting slightly elevated liver enzymes and triglycerides, and discussed the plan for a liver ultrasound and referral to a meat service team member. I emphasized the importance of lifestyle modifications, including regular exercise, to manage her lipid levels and overall health. Patient was informed and verbally consented to the use of an ambient scribe for clinic note documentation during this visit. Patient Instructions - Continue taking Lexapro as prescribed and do not miss doses. - Schedule a follow-up appointment in tw o weeks. - Attend the meat service team member appointment fo r dietary guidance. - attempt behavioral health appointment today - Undergo the liver ultrasound as schedu led. - Incorporate 30-minute walks into your daily routine to achieve 150 minutes of exercise weekly. Total time spent caring for the patient today was 30 minutes. This includes time spent before the visit reviewing the chart, time spent documenting, and time spent reviewing laboratory results,medications, performing a medically nec essary evaluation, counseling on diagnoses, care coordination, ordering appropriate tests. [facility] Medical History (Updated 12/26/24 @ 08:38 by Braeden Mcelroy MD) Elevated liver enzymes Class 1 obesity Family History Mother HTN (hypertension) Maternal Grandfather Diabetes Maternal Grandmother Heart disease Paternal Grandfather Diabetes Father No problems noted. 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 1. Little interest or pleasure in doing things: not at all 2. Feeling down, depressed, or hopeless: not at all 3. Trouble falling or staying asleep, or sleeping too much: not at all 4. Feeling tired or having little energy: not at all 5. Poor appetite or overeating: not at all 6. Feeling bad about yourself - or that you are a failure or have let yourself or your family down: not at all 7. Trouble concentrating on things, such as reading the newspaper or watching television: not at all 8. Moving or speaking so slowly that other people could have noticed. Or the opposite - being so fidgety or restless that you have been moving around a lot more than usual: not at all 9. Thoughts that you would be better off or of hurting yourself in some way: not at all Total score: 0 Source: Developed by Drs. Saqib Whittington, Kenney Ny and colleagues, with an educational elo from [employer]. Thrive Questionnaire Date Thrive assessed: 11/29/24 I am a: Patient What is your living situation today?: I have a steady place to live Within the past 12 months, did the food you bought not last and you didn't have the money to get more?: I choose not to answer this question Within the past 12 months, did you worry whether your food would run out before you got money to buy more?: I choose not to answer this question Do you have trouble paying for medicines?: No Do you have trouble getting transportation to medical appointments?: No Do you have trouble paying your heating and electricity bill?: No Do you have trouble taking care of your child, family member or friend?: No Do you have trouble with day-to-day activities such as bathing, preparing meals, shopping, managing finances, etc.?: No Are you currently unemployed and looking for a job?: No Are you interested in more education?: Yes Please select the resources that you would like help with: Education Currently or been in a relationship where the following occur: I choose not to answer THRIVE Score: 0 AUDIT C Alcohol Use Questionnaire (AUDIT-C) 1. How often do you have a drink containing alcohol?: Monthly or less Total Score: 1 SHAYAN-7 AMB Questionnaire SHAYAN-7 Date SHAYAN - 7 assessed: 12/02/24 Feeling nervous, anxious, or on edge: 3 = Nearly every day Not being able to stop or control worryin = Nearly every day Worrying too much about different things: 3 = Nearly every day Trouble relaxin = Nearly every day Being so restless that it is hard to sit still: 3 = Nearly every day Becoming easily annoyed or irritable: 3 = Nearly every day Feeling afraid as if something awful might happen: 3 = Nearly every day Total SHAYAN-7 score (0-4 normal; 5-9 mild; 10-14 moderate; 15-21 severe): 21 Source: Developed by Drs. Saqib Whittington, Kenney Ny and colleagues, with an educational elo from [employer]. SHAYAN-7 Assessment Billing SHAYAN-7 Assessment Tool: SHAYAN-7 Assessment 20767 Physical exam (Primary Care) Vital Signs: Last Vital Signs Resp 16 12/26/24 08:35 BMI result Body Mass Index 33.7 Tobacco/Smoking Status: Tobacco use Status Tobacco use date assessed 12/02/24 12/26/24 08:37 Patient Tobacco Use Status Current someday Tobacco 12/26/24 08:37 PHQ-9: PHQ-9 Score PHQ-9: Total score 0 12/26/24 08:37 Thrive Assessment: Date of Thrive Assessment Date Thrive assessed 11/29/24 12/26/24 08:37 Currently or been in a relationship where the following occur: I choose not to answer Coding Level of Care Code Est Pt Level 4 (51989) Diagnoses Adjustment disorder with anxiety F43.22 Hypertriglyceridemia E78.1 Low HDL (under 40) E78.6 Class 1 obesity E66.811 Elevated liver enzymes R74.8 Additional Codes SHAYAN-7 Assessment Billing - SHAYAN-7 Assessment Tool: SHAYAN-7 Assessment 01953 ([id number]) Assessment & Plan Assessment & Plan (1) Adjustment disorder with anxiety: Code(s): F43.22 - Adjustment disorder with anxiety (2) Hypertriglyceridemia: Code(s): E78.1 - Pure hyperglyceridemia (3) Low HDL (under 40): Code(s): E78.6 - Lipoprotein deficiency (4) Class 1 obesity: Code(s): E66.811 - Obesity, class 1 Category: Medical (5) Elevated liver enzymes: Code(s): R74.8 - Abnormal levels of other serum enzymes Category: Medical Plan Orders: Orders US abdomen limited Today R74.8 - Abnormal levels of other serum enzymes Referrals Nutrition/Dietitian Referral E66.811 - Obesity, class 1 Medications: Refilled escitalopram oxalate 10 mg PO DAILY 30 tabs 0RF
== END 2024-12-26 08:53 | disposition home or self-care (01) ==
LOC: HO.HMCFMS 08:35
PROVIDERS: PCP Student in an Organized Health Care Education/Training Program; Visit Provider Student in an Organized Health Care Education/Training Program
DX: F43.22 Adjustment disorder with anxiety (principal); E78.1 Pure hyperglyceridemia; E78.6 Lipoprotein deficiency; E66.811 Obesity, class 1; R74.8 Abnormal levels of other serum enzymes

== ENCOUNTER 2025-01-03 11:42 | Outpatient (REF) | payer OTHER, SELFPAY ==
[2025-01-03 19:16] LABS: Appearance Urine Clear; Glucose Urine UA Negative (Negative); PH 6.0 (5.0-9.0); Specific Gravity - Urine 1.020 (1.005-1.025); UMIC TRIGGER UACC YES
[2025-01-03 19:52] LABS: UACC Culture Trigger YES
== END 2025-01-03 11:43 | disposition home or self-care (01) ==
LOC: HO.LNP 11:42
PROVIDERS: PCP Student in an Organized Health Care Education/Training Program; Visit Provider Student in an Organized Health Care Education/Training Program
DX: Z13.89 Encounter for screening for other disorder (principal); R30.0 Dysuria; R35.0 Frequency of micturition
CPT/HCPCS: 81001; 81003; 87086; 87088; 87186

== ENCOUNTER 2025-01-03 11:42 | Outpatient (AMB) | payer OTHER, SELFPAY ==
[2025-01-03 11:46] VITALS: BP 127/61; PULSE 91; TEMP 37.2; O2SAT 97; BMI 33.6
--- NOTE | 2025-01-03 11:46 | A.OFFPC_ITS ---
Vital Signs 01/03/25 11:46 Height 5 ft 1 in Weight 178 lb BMI 33.6 BP 127/61 Blood Pressure Location Lt brachial Position Sitting Pulse 91 Pulse Source Pulse Oximeter Temp 98.9 F Temp Source Oral Pulse Oximetry (%) 97 Oxygen Delivery Method Room Air Intake Visit Reasons: Urinary tract infection Intake Note: C/o dysuria, urinary frequency x 4 days. . 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 History of Present Illness The patient is a 19-year-old female presenting with symptoms suggestive of a urinary tract infection. Urinary Tract Infection: - The patient reports dysuria and increa sed urinary frequency, with onset a few days ago. - She has a history of holding urine, wh ich she believes may contribute to her symptoms. - The patient has experienced similar sy mptoms in the past, but this time she is certain it is a UTI. Review of Systems - Genitourinary: Reports dysuria and inc reased urinary frequency. Denies any other genitourinary symptoms. 10-point ROS reviewed and negative excep t as noted in HPI Past Medical History Health Maintenance Physical Exam General: Well-appearing, in no acute distress. Vital signs: Within normal limits. HEENT: Normocephalic, atraumatic. PERRLA, EOMI. Conjunctiva clear, sclera anicteric. Oropharynx clear, mucous membranes moist. TMs intact bilaterally. Neck: Supple, no lymphadenopathy, no thyromegaly, no JVD or carotid bruits. Cardiovascular: RRR, normal S1/S2, no murmurs, rubs, or gallops. Peripheral pulses 2+ and symmetric. No edema. Respiratory: Lungs clear to auscultation bilaterally, no wheezes, rales, or rhonchi. Normal effort. Abdomen: Soft, non-tender, non-distended. Normoactive bowel sounds. No hepatosplenomegaly, no masses. MSK: Full range of motion, no joint swelling or deformity. Normal gait. Skin: Warm, dry, intact. No rashes, lesions, or pallor. Neuro: Alert and oriented x3. Cranial nerves II-XII intact. Strength 5/5 throughout. Sensation intact. Reflexes 2+ symmetric. Normal coordination and gait. Psych: Appropriate mood and affect. Normal judgment and insight. Plan 1. Urinary Tract Infection - Prescribed Nitrofurantoin 100 mg twice daily for 5 days. - Prescribed Phenazopyridine for symptom atic relief, to be taken three times a day for 3 days. Discussion Notes I discussed with the patient the likely diagnosis of a urinary tract infection and the treatment plan, including the use of Nitrofurantoin and Phenazopyridine. I explained the potential side effects of the medications, such as urine discoloration with Phenazopyridine. Patient Instructions - Take Nitrofurantoin 100 mg twice daily for 5 days. - Take Phenazopyridine three times a day for 3 days. - Drink plenty of fluids to help flush t he urinary tract. - Contact the clinic if symptoms do not improve or worsen. Medical Decision Making The decision to treat the patient with Nitrofurantoin was based on her symptoms of dysuria and increased urinary frequency, consistent with a urinary tract infection. Phenazopyridine was prescribed for symptomatic relief to address the discomfort during urination. Total time spent caring for the patient today was 30 minutes. This includes time spent before the visit reviewing the chart, time spent documenting, and time spent reviewing laboratory results, diagnostic imaging, medications, performing a medically necessary evaluation, counseling on diagnoses, care coordination, ordering appropriate tests. [facility] Medical History (Updated 01/03/25 @ 12:20 by Braeden Mcelroy MD) Frequency of micturition Dysuria Elevated liver enzymes Class 1 obesity Family History Mother HTN (hypertension) Maternal Grandfather Diabetes Maternal Grandmother Heart disease Paternal Grandfather Diabetes Father No problems noted. 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 1. Little interest or pleasure in doing things: several days 2. Feeling down, depressed, or hopeless: several days 3. Trouble falling or staying asleep, or sleeping too much: more than half the days 4. Feeling tired or having little energy: more than half the days 5. Poor appetite or overeating: nearly every day 6. Feeling bad about yourself - or that you are a failure or have let yourself or your family down: several days 7. Trouble concentrating on things, such as reading the newspaper or watching television: several days 8. Moving or speaking so slowly that other people could have noticed. Or the opposite - being so fidgety or restless that you have been moving around a lot more than usual: more than half the days 9. Thoughts that you would be better off or of hurting yourself in some way: not at all Total score: 13 Source: Developed by Drs. Saqib Whittington, Quyen Anaya, Kenney Joiner and colleagues, with an educational elo from [employer]. Thrive Questionnaire Date Thrive assessed: 01/03/25 I am a: Patient What is your living situation today?: I have a steady place to live Within the past 12 months, did the food you bought not last and you didn't have the money to get more?: I choose not to answer this question Within the past 12 months, did you worry whether your food would run out before you got money to buy more?: I choose not to answer this question Do you have trouble paying for medicines?: No Do you have trouble getting transportation to medical appointments?: No Do you have trouble paying your heating and electricity bill?: No Do you have trouble taking care of your child, family member or friend?: No Do you have trouble with day-to-day activities such as bathing, preparing meals, shopping, managing finances, etc.?: No Are you currently unemployed and looking for a job?: No Are you interested in more education?: Yes Please select the resources that you would like help with: Education Currently or been in a relationship where the following occur: I choose not to answer THRIVE Score: 0 SHAYAN-7 AMB Questionnaire SHAYAN-7 Date SHAYAN - 7 assessed: 01/03/25 Feeling nervous, anxious, or on edge: 3 = Nearly every day Not being able to stop or control worryin = Nearly every day Worrying too much about different things: 3 = Nearly every day Trouble relaxin = Nearly every day Being so restless that it is hard to sit still: 3 = Nearly every day Becoming easily annoyed or irritable: 3 = Nearly every day Feeling afraid as if something awful might happen: 3 = Nearly every day Total SHAYAN-7 score (0-4 normal; 5-9 mild; 10-14 moderate; 15-21 severe): 21 Source: Developed by Drs. Saqib Whittington, Quyen Anaya, Kenney Joiner and colleagues, with an educational elo from [employer]. SHAYAN-7 Assessment Billing SHAYAN-7 Assessment Tool: SHAYAN-7 Assessment 04477 Physical exam (Primary Care) Vital Signs: Last Vital Signs Temp 98.9 F 01/03/25 11:46 Pulse 91 01/03/25 11:46 BP 127/61 01/03/25 11:46 Pulse Ox 97 01/03/25 11:46 Oxygen Delivery Method Room Air 01/03/25 11:46 BMI result Body Mass Index 33.6 Tobacco/Smoking Status: Tobacco use Status Tobacco use date assessed 01/03/25 01/03/25 11:50 Patient Tobacco Use Status Current someday Tobacco 01/03/25 11:50 PHQ-9: PHQ-9 Score PHQ-9: Total score 13 01/03/25 11:58 Thrive Assessment: Date of Thrive Assessment Date Thrive assessed 01/03/25 01/03/25 11:50 Currently or been in a relationship where the following occur: I choose not to answer Results AMB Urinalysis Dipstick UR Leukocytes Negative Last Edit by Luly Centeno CMA on 01/03/25 12:07 UR Nitrite Positive Last Edit by Luly Centeno CMA on 01/03/25 12:07 UR Urobilinogen Normal Last Edit by Luly Centeno CMA on 01/03/25 12:07 UR Protein Negative Last Edit by Luly Centeno CMA on 01/03/25 12:07 UR Ph 6.0 Last Edit by Luly Centeno CMA on 01/03/25 12:07 UR Blood Negative Last Edit by Luly Centeno CMA on 01/03/25 12:07 UR Specific [place] 1.015 Last Edit by Luly Centeno CMA on 01/03/25 12 :07 UR Ketone Last Edit by Luly Centeno CMA on 01/03/25 12:07 UR Bilirubin Last Edit by Luly Centeno CMA on 01/03/25 12:07 UR Glucose Last Edit by Luly Centeno CMA on 01/03/25 12:07 Large nitrites Results Reviewed Results Reviewed: Laboratory Last Values Urine pH (Clinic) 6.0 01/03/25 12:05 Specific [place] (Clinic) 1.015 01/03/25 12:05 Ur Protein (Clinic) Negative 01/03/25 12:05 Urine Blood (Clinic) Negative 01/03/25 12:05 Urine Nitrite Positive 01/03/25 12:05 Urobilinogen (Clinic) Normal 01/03/25 12:05 Leukocyte Esterase (Clinic) Negative 01/03/25 12:05 Coding Level of Care Code Est Pt Level 4 (77588) Diagnoses Dysuria R30.0 Frequency of micturition R35.0 Urinary tract infection N39.0 Additional Codes SHAYAN-7 Assessment Billing - SHAYAN-7 Assessment Tool: SHAYAN-7 Assessment 41604 ([id number]) Assessment & Plan Assessment & Plan (1) Dysuria: Code(s): R30.0 - Dysuria Category: Medical (2) Frequency of micturition: Code(s): R35.0 - Frequency of micturition Category: Medical (3) Urinary tract infection: Code(s): N39.0 - Urinary tract infection, site not specified Plan Orders: Orders AMB Urinalysis Dipstick Today Z13.9 - Encounter for screening, unspecified UA CC w/rflx Micro + Cult Today R30.0 - Dysuria, R35.0 - Frequency of micturition Medications: New phenazopyridine (Pyridium) 100 mg PO TID 10 tabs 0RF nitrofurantoin macrocrystal must administer with a meal/food 100 mg PO Q12H 10 caps 0RF
== END 2025-01-03 12:21 | disposition home or self-care (01) ==
LOC: HO.HMCFMS 11:43
PROVIDERS: PCP Student in an Organized Health Care Education/Training Program; Visit Provider Student in an Organized Health Care Education/Training Program
DX: R30.0 Dysuria (principal); R35.0 Frequency of micturition; N39.0 Urinary tract infection, site not specified

== ENCOUNTER 2025-01-06 11:29 | Outpatient (AMB) | payer OTHER, SELFPAY ==
[2025-01-06 11:31] VITALS: BP 131/82; PULSE 89; RESP 16; TEMP 36.6; O2SAT 97; BMI 33.6
--- NOTE | 2025-01-06 11:31 | A.OFFPC_ITS ---
Vital Signs 01/06/25 11:31 Height 5 ft 1 in Weight 178 lb BMI 33.6 BP 131/82 Blood Pressure Location Lt brachial Position Sitting Respiration 16 Pulse 89 Pulse Source Pulse Oximeter Temp 98 F Temp Source Oral Pulse Oximetry (%) 97 Oxygen Delivery Method Room Air Intake Visit Reasons: Chest and Nasal Congestion, Coughing Intake Note: C/o dysuria, urinary frequency x 4 days. . Pressure Welder Required: No Accompanied by: Self / Same As Patient Allergies No Known Allergies Allergy (Verified 01/06/25 11:32) Tobacco use date assessed: 01/06/25 Dental Screening Dental Screen Date: 01/06/25 Did you have a dental visit in the last 12 months?: Yes Did you have a dental problem in the last 6 months where you did not have access to dental care?: No Was dental information given to patient?: Patient has dentist HPI HPI Comments History of Present Illness Details Consent Patient was informed and verbally consented to the use of an ambient scribe for clinic note documentation during this visit. History of Present Illness The patient is a 19-year-old female presenting with a cough and chest tightness. Viral upper respiratory infection: The patient reports a cough that started a few days ago, accompanied by chest tightness and pharyngitis. She denies any fever or chills and reports hacking up phlegm earlier. The symptoms appear to be viral in nature, with no significant difficulty in breathing reported. Medications: - Mucinex: For cough and phlegm manageme nt - Tylenol: For symptomatic relief Review of Systems - Respiratory: Reports cough and chest t ightness. Denies fever or chills. - Throat: Reports pharyngitis. 10-point ROS reviewed and negative excep t as noted in HPI Past Medical History Health Maintenance Physical Exam General: Well-appearing, in no acute distress. Vital signs: Within normal limits. HEENT: Normocephalic, atraumatic. PERRLA, EOMI. Conjunctiva clear, sclera anicteric. Oropharynx clear, mucous membranes moist. TMs intact bilaterally. Back of the throat hurts. Neck: Supple, no lymphadenopathy, no thyromegaly, no JVD or carotid bruits. Cardiovascular: RRR, normal S1/S2, no murmurs, rubs, or gallops. Peripheral pulses 2+ and symmetric. No edema. Respiratory: Lungs clear to auscultation bilaterally, no wheezes, rales, or rhonchi. Normal effort. Reports chest tightness and a cough. Albuterol inhaler prescribed. Abdomen: Soft, non-tender, non-distended. Normoactive bowel sounds. No hepatosplenomegaly, no masses. MSK: Full range of motion, no joint swelling or deformity. Normal gait. Skin: Warm, dry, intact. No rashes, lesions, or pallor. Neuro: Alert and oriented x3. Cranial nerves II-XII intact. Strength 5/5 throughout. Sensation intact. Reflexes 2+ symmetric. Normal coordination and gait. Psych: Appropriate mood and affect. Normal judgment and insight. Plan 1. Viral Upper Respiratory Infection - Prescribed albuterol inhaler for chest tightness management. - Recommended [id number] medicatio ns: Mucinex and Tylenol for symptomatic relief. - Advised rest and to stay home to preve nt spreading the infection. Discussion Notes I discussed with the patient that her symptoms are consistent with a viral upper respiratory infection. I recommended symptomatic treatment with Mucinex and Tylenol, and prescribed an albuterol inhaler for chest tightness. I advised her to rest and stay home to prevent spreading the infection to others. Patient Instructions - Use the albuterol inhaler as needed fo r chest tightness. - Take Mucinex and Tylenol for symptom r elief. - Rest and stay home to avoid spreading the infection. Medical Decision Making The patient's symptoms suggest a viral upper respiratory infection, likely contracted from a recent exposure. Given the absence of severe symptoms, I opted for symptomatic treatment with [id number] medications and an albuterol inhaler for chest tightness. The goal is to manage symptoms and prevent transmission to others. Total time spent caring for the patient today was 30 minutes. This includes time spent before the visit reviewing the chart, time spent documenting, and time spent reviewing laboratory results, diagnostic imaging, medications, performing a medically necessary evaluation, counseling on diagnoses, care coordination.. [facility] Medical History (Updated 01/03/25 @ 12:20 by Braeden Mcelroy MD) Frequency of micturition Dysuria Elevated liver enzymes Class 1 obesity Family History Mother HTN (hypertension) Maternal Grandfather Diabetes Maternal Grandmother Heart disease Paternal Grandfather Diabetes Father No problems noted. 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[place] Sexual orientation: Straight/Heterosexual Gender identity: Female Cognitive needs: No Hearing needs: No Vision needs: No Female Reproductive History Menstrual Age of Menarche: 7 Questionnaire Thrive Questionnaire Date Thrive assessed: 01/06/25 I am a: Patient What is your living situation today?: I have a steady place to live Within the past 12 months, did the food you bought not last and you didn't have the money to get more?: I choose not to answer this question Within the past 12 months, did you worry whether your food would run out before you got money to buy more?: I choose not to answer this question Do you have trouble paying for medicines?: No Do you have trouble getting transportation to medical appointments?: No Do you have trouble paying your heating and electricity bill?: No Do you have trouble taking care of your child, family member or friend?: No Do you have trouble with day-to-day activities such as bathing, preparing meals, shopping, managing finances, etc.?: No Are you currently unemployed and looking for a job?: No Are you interested in more education?: Yes Please select the resources that you would like help with: Education Currently or been in a relationship where the following occur: I choose not to answer THRIVE Score: 0 SHAYAN-7 AMB Questionnaire SHAYAN-7 Date SHAYAN - 7 assessed: 01/06/25 Source: Developed by Drs. Saqib Whittington, Quyen Anaya, Kenney Joiner and colleagues, with an educational elo from [employer]. Physical exam (Primary Care) Vital Signs: Last Vital Signs Temp 98 F 01/06/25 11:31 Pulse 89 01/06/25 11:31 Resp 16 01/06/25 11:31 BP 131/82 01/06/25 11:31 Pulse Ox 97 01/06/25 11:31 Oxygen Delivery Method Room Air 01/06/25 11:31 BMI result Body Mass Index 33.6 Tobacco/Smoking Status: Tobacco use Status Tobacco use date assessed 01/06/25 01/06/25 11:39 Patient Tobacco Use Status Current someday Tobacco 01/06/25 11:32 Thrive Assessment: Date of Thrive Assessment Date Thrive assessed 01/06/25 01/06/25 11:39 Currently or been in a relationship where the following occur: I choose not to answer Coding Level of Care Code Est Pt Level 3 (11532) Diagnoses Viral upper respiratory infection J06.9 Assessment & Plan Assessment & Plan (1) Viral upper respiratory infection: Code(s): J06.9 - Acute upper respiratory infection, unspecified Plan
== END 2025-01-06 11:58 | disposition home or self-care (01) ==
LOC: HO.HMCFMS 11:30
PROVIDERS: PCP Student in an Organized Health Care Education/Training Program; Visit Provider Student in an Organized Health Care Education/Training Program
DX: J06.9 Acute upper respiratory infection, unspecified (principal)

== ENCOUNTER 2025-01-13 12:55 | Outpatient (AMB) | payer OTHER, SELFPAY ==
[2025-01-13 13:01] VITALS: BP 128/89; PULSE 84; RESP 16; TEMP 36.9; O2SAT 99; BMI 33.9
--- NOTE | 2025-01-13 13:01 | MHC.PC.OV ---
Vital Signs 01/13/25 13:01 Height 5 ft 1 in Weight 179 lb 4 oz BMI 33.9 BP 128/89 Blood Pressure Location Lt brachial Position Sitting Respiration 16 Pulse 84 Pulse Source Pulse Oximeter Temp 98.4 F Temp Source Oral Pulse Oximetry (%) 99 Oxygen Delivery Method Room Air Intake Visit Reasons: 2 wk f/u Intake Note: C/o dysuria, urinary frequency x 4 days. . Costing Manager Required: No Accompanied by: Self / Same As Patient Allergies No Known Allergies Allergy (Verified 01/13/25 13:02) Medication List - Last Reconciled 01/13/25 by Braeden Mcelroy MD alprazolam 0.5 mg PO DAILY escitalopram oxalate 10 mg PO DAILY levonorgestrel (Mirena) intrauterine Tobacco use date assessed: 01/13/25 Dental Screening Dental Screen Date: 01/13/25 Did you have a dental visit in the last 12 months?: Yes Did you have a dental problem in the last 6 months where you did not have access to dental care?: No Was dental information given to patient?: Patient has dentist HPI HPI Comments History of Present Illness Details History of Present Illness The patient is a 19-year-old female presenting with anxiety management and medication adjustment. Anxiety: The patient has been experiencing anxiety, initially rated as a 10 on a scale of 1 to 10, with 10 being the worst. She has been on medication for about a month, which has reduced her anxiety to a level of 6 or 7. The patient reports increased anxiety recently, requiring the use of Xanax approximately three to four times, with sleepiness as a side effect. She has been attending therapy sessions weekly since December 27. Medications: - Xanax: Taken for anxiety, with reported side effect of sleepiness. - Escitalopram (Lexapro) 10 mg: Taken for anxiety management. Social History: - Employment: The patient works and takes medication at her workplace. - Therapy: Attends therapy sessions weekly. Past Medical History Health Maintenance - IUD follow-up: Confirmed correct placement and no complications. [facility], [facility] Medical History (Updated 01/03/25 @ 12:20 by Braeden Mcelroy MD) Frequency of micturition Dysuria Elevated liver enzymes Class 1 obesity Family History Mother HTN (hypertension) Maternal Grandfather Diabetes Maternal Grandmother Heart disease Paternal Grandfather Diabetes Father No problems noted. 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[place] Sexual orientation: Straight/Heterosexual Gender identity: Female Cognitive needs: No Hearing needs: No Vision needs: No Female Reproductive History Menstrual Age of Menarche: 7 Questionnaire Thrive Questionnaire Date Thrive assessed: 01/06/25 I am a: Patient What is your living situation today?: I have a steady place to live Within the past 12 months, did the food you bought not last and you didn't have the money to get more?: I choose not to answer this question Within the past 12 months, did you worry whether your food would run out before you got money to buy more?: I choose not to answer this question Do you have trouble paying for medicines?: No Do you have trouble getting transportation to medical appointments?: No Do you have trouble paying your heating and electricity bill?: No Do you have trouble taking care of your child, family member or friend?: No Do you have trouble with day-to-day activities such as bathing, preparing meals, shopping, managing finances, etc.?: No Are you currently unemployed and looking for a job?: No Are you interested in more education?: Yes Please select the resources that you would like help with: Education Currently or been in a relationship where the following occur: I choose not to answer THRIVE Score: 0 SHAYAN-7 AMB Questionnaire SHAYAN-7 Date SHAYAN - 7 assessed: 01/06/25 Source: Developed by Drs. Saqib Whittington, Quyen Anaya, Kenney Joiner and colleagues, with an educational elo from [employer]. Review of Systems Narrative Review of Systems - Psychiatric: Reports anxiety, improved from 10 to 6-7 on a scale of 1 to 10. Denies any other psychiatric symptoms. 10-point ROS reviewed and negative except as noted in HPI Physical exam (Primary Care) Vital Signs: Last Vital Signs Temp 98.4 F 01/13/25 13:01 Pulse 84 01/13/25 13:01 Resp 16 01/13/25 13:01 BP 128/89 01/13/25 13:01 Pulse Ox 99 01/13/25 13:01 Oxygen Delivery Method Room Air 01/13/25 13:01 BMI result Body Mass Index 33.9 Tobacco/Smoking Status: Tobacco use Status Tobacco use date assessed 01/13/25 01/13/25 13:11 Patient Tobacco Use Status Current someday Tobacco 01/13/25 13:11 Thrive Assessment: Date of Thrive Assessment Date Thrive assessed 01/06/25 01/13/25 13:11 Currently or been in a relationship where the following occur: I choose not to answer Narrative Physical Exam General: Well-appearing, in no acute distress. Vital signs: Within normal limits. HEENT: Normocephalic, atraumatic. PERRLA, EOMI. Conjunctiva clear, sclera anicteric. Oropharynx clear, mucous membranes moist. TMs intact bilaterally. Neck: Supple, no lymphadenopathy, no thyromegaly, no JVD or carotid bruits. Cardiovascular: RRR, normal S1/S2, no murmurs, rubs, or gallops. Peripheral pulses 2+ and symmetric. No edema. Respiratory: Lungs clear to auscultation bilaterally, no wheezes, rales, or rhonchi. Normal effort. Abdomen: Soft, non-tender, non-distended. Normoactive bowel sounds. No hepatosplenomegaly, no masses. MSK: Full range of motion, no joint swelling or deformity. Normal gait. Skin: Warm, dry, intact. No rashes, lesions, or pallor. Neuro: Alert and oriented x3. Cranial nerves II-XII intact. Strength 5/5 throughout. Sensation intact. Reflexes 2+ symmetric. Normal coordination and gait. Psych: Appropriate mood and affect. Normal judgment and insight. Patient reports improvement in anxiety symptoms with current medication regimen, though some anxiety persists. Medication adjustment planned to increase dosage to 10 mg in the morning and 10 mg in the afternoon. Patient is engaged in therapy and reports no side effects from medication, aside from mild sleepiness. Coding Level of Care Code Est Pt Level 3 (96637) Diagnoses Class 1 obesity E66.811 Adjustment disorder with anxiety F43.22 Assessment & Plan Assessment & Plan (1) Class 1 obesity: Code(s): E66.811 - Obesity, class 1 Category: Medical (2) Adjustment disorder with anxiety: Code(s): F43.22 - Adjustment disorder with anxiety Plan Consent Patient was informed and verbally consented to the use of an ambient scribe for clinic note documentation during this visit. Plan 1. Anxiety - Increase Escitalopram (Lexapro) to 10 mg twice daily to manage anxiety symptoms. - Continue therapy sessions weekly. - Monitor for any side effects or need for further medication adjustments. Discussion Notes We discussed the patient's current anxiety management and the potential benefits of increasing the dosage of Escitalopram to 10 mg twice daily. The patient expressed a preference for medication over benzodiazepines and agreed to trial the increased dosage. Patient Instructions - Take Escitalopram 10 mg in the morning and 10 mg in the afternoon. - Continue attending therapy sessions weekly. - Monitor for any side effects and report them during the next visit. Medical Decision Making The decision to increase the Escitalopram dosage was based on the patient's ongoing anxiety symptoms and preference to avoid benzodiazepines. The goal is to achieve better anxiety control while minimizing the use of Xanax. Total time spent caring for the patient today was 30 minutes. This includes time spent before the visit reviewing the chart, time spent documenting, and time spent reviewing laboratory results, diagnostic imaging, medications, performing a medically necessary evaluation, counseling on diagnoses, care coordination, .
== END 2025-01-13 13:22 | disposition home or self-care (01) ==
LOC: HO.HMCFMS 12:56
PROVIDERS: PCP Student in an Organized Health Care Education/Training Program; Visit Provider Student in an Organized Health Care Education/Training Program
DX: E66.811 Obesity, class 1 (principal); F43.22 Adjustment disorder with anxiety

== ENCOUNTER 2025-03-15 11:35 | Outpatient (AMB) | payer OTHER, SELFPAY ==
--- NOTE | 2025-03-15 11:58 | MHC.PC.OV ---
Vital Signs 03/15/25 11:59 Weight 185 lb 4 oz BP 121/65 Blood Pressure Location Lt brachial Position Sitting Pulse 68 Pulse Source Pulse Oximeter Temp 98.2 F Temp Source Oral Pulse Oximetry (%) 98 Oxygen Delivery Method Room Air Intake Visit Reasons: Follow Up Accompanied by: Self / Same As Patient Allergies No Known Allergies Allergy (Verified 03/15/25 12:00) Medication List - Last Reconciled 03/15/25 by Braeden Mcelroy MD alprazolam 0.5 mg PO DAILY escitalopram oxalate 10 mg PO DAILY levonorgestrel (Mirena) intrauterine Tobacco use date assessed: 03/15/25 Dental Screening Dental Screen Date: 03/15/25 Did you have a dental visit in the last 12 months?: Yes Was dental information given to patient?: Patient has dentist HPI HPI Comments History of Present Illness Details History of Present Illness The patient is a 19 year old female presenting for follow-up for anxiety, medication management, and review of lab results. Anxiety: The patient reports her anxiety is okay and she has been consistent with therapy, which she finds very helpful. Her therapy has focused on mindfulness and developing healthier coping skills. She notes that recently she has not had overwhelming anxiety, but has experienced mood changes and has been snappy, which she is addressing with her therapist. Medication Non-Adherence: The patient reports a recent period of one to two weeks where she was not fully consistent with her citalopram. She attributes this to a change in her routine, causing her to miss doses or take only one of her two daily pills at odd times, which made her feel unwell. She is now back on her regular medication schedule. Elevated liver enzymes: Lab work from November showed elevated liver enzymes, for which an ultrasound was recommended. The patient has not yet scheduled the ultrasound. Dyslipidemia: Lab results from November showed elevated triglycerides and a low HDL cholesterol level of 36. Her other cholesterol levels were within normal limits. She was advised to reduce her intake of sodas, snacks, and alcohol. Medications: - Citalopram 10 mg twice daily for anxiety. 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 - Alcohol Use: She has been advised to cut down on alcohol. - Diet: She has been advised to reduce her intake of sodas and snacks. Diagnostic Results: - Labs from November: - Elevated liver enzymes. - Elevated triglycerides. - HDL cholesterol was low at 36. - Total cholesterol and LDL cholesterol were within normal limits. Past Medical History - Anxiety - Elevated liver enzymes, noted on labs in November. - Dyslipidemia with elevated triglycerides and low HDL, noted on labs in November. Health Maintenance - Encouraged to reduce intake of sodas, snacks, and alcohol. - Patient to follow up for an abdominal ultrasound to evaluate elevated liver enzymes. [facility] Medical History Frequency of micturition Dysuria Elevated liver enzymes Class 1 obesity Family History Mother HTN (hypertension) Maternal Grandfather Diabetes Maternal Grandmother Heart disease Paternal Grandfather Diabetes Father No problems noted. Social History Household Members: Family Housing: House Alcohol intake: current Alcohol intake frequency: holidays/special occasions only Patient Tobacco Use Status: Current someday Tobacco user Cigarettes Per Day: 1 e-Cigarette/Vaping Use: Never Used Substance Use Type: Marijuana service: No Current occupational status: employed Sexual orientation: Straight/Heterosexual Gender identity: Female Cognitive needs: No Hearing needs: No Vision needs: No Female Reproductive History Menstrual Age of Menarche: 7 Questionnaire PHQ-9 Over the last 2 weeks, how often have you been bothered by any of the following problems? 1. Little interest or pleasure in doing things: several days 2. Feeling down, depressed, or hopeless: several days 3. Trouble falling or staying asleep, or sleeping too much: more than half the days 4. Feeling tired or having little energy: more than half the days 5. Poor appetite or overeating: nearly every day 6. Feeling bad about yourself - or that you are a failure or have let yourself or your family down: several days 7. Trouble concentrating on things, such as reading the newspaper or watching television: several days 8. Moving or speaking so slowly that other people could have noticed. Or the opposite - being so fidgety or restless that you have been moving around a lot more than usual: more than half the days 9. Thoughts that you would be better off or of hurting yourself in some way: not at all Total score: 13 Depression Screening Interpretation: Positive Depression Screening Done: Yes Source: Developed by Drs. Saqib Whittington, Kenney Ny and colleagues, with an educational elo from [employer]. Thrive Questionnaire Date Thrive assessed: 03/15/25 I am a: Patient What is your living situation today?: I have a steady place to live Within the past 12 months, did the food you bought not last and you didn't have the money to get more?: I choose not to answer this question Within the past 12 months, did you worry whether your food would run out before you got money to buy more?: I choose not to answer this question Do you have trouble paying for medicines?: No Do you have trouble getting transportation to medical appointments?: No Do you have trouble paying your heating and electricity bill?: No Do you have trouble taking care of your child, family member or friend?: No Do you have trouble with day-to-day activities such as bathing, preparing meals, shopping, managing finances, etc.?: No Are you currently unemployed and looking for a job?: No Are you interested in more education?: Yes Currently or been in a relationship where the following occur: I choose not to answer THRIVE Score: 0 AUDIT C Alcohol Use Questionnaire (AUDIT-C) 1. How often do you have a drink containing alcohol?: Monthly or less Total Score: 1 SHAYAN-7 AMB Questionnaire SHAYAN-7 Date SHAYAN - 7 assessed: 03/15/25 Feeling nervous, anxious, or on edge: 0 = Not at all Not being able to stop or control worryin = Not at all Worrying too much about different things: 0 = Not at all Trouble relaxin = Not at all Being so restless that it is hard to sit still: 0 = Not at all Becoming easily annoyed or irritable: 0 = Not at all Feeling afraid as if something awful might happen: 0 = Not at all Total SHAYAN-7 score (0-4 normal; 5-9 mild; 10-14 moderate; 15-21 severe): 0 Source: Developed by Quyen Ryder Kurt Kroenke and colleagues, with an educational elo from [employer]. Review of Systems Narrative Review of Systems - Psychiatric: Reports recent mood changes and feeling snappy. - She denies experiencing overwhelming anxiety recently. 10-point ROS reviewed and negative except as noted in HPI Physical exam (Primary Care) Vital Signs: Last Vital Signs Temp 98.2 F 03/15/25 11:59 Pulse 68 03/15/25 11:59 BP 121/65 03/15/25 11:59 Pulse Ox 98 03/15/25 11:59 Oxygen Delivery Method Room Air 03/15/25 11:59 Tobacco/Smoking Status: Tobacco use Status Tobacco use date assessed 03/15/25 03/15/25 12:04 Patient Tobacco Use Status Current someday Tobacco 03/15/25 12:04 e-Cigarette/Vaping Use Never Used 03/15/25 12:04 PHQ-9: PHQ-9 Score PHQ-9: Total score 13 03/15/25 12:04 Depression Screening Interpretation: Positive Thrive Assessment: Date of Thrive Assessment Date Thrive assessed 03/15/25 03/15/25 12:04 Currently or been in a relationship where the following occur: I choose not to answer Narrative Physical Exam General: Well-appearing, in no acute distress. Vital signs: Within normal limits. HEENT: Normocephalic, atraumatic. PERRLA, EOMI. Conjunctiva clear, sclera anicteric. Oropharynx clear, mucous membranes moist. TMs intact bilaterally. Neck: Supple, no lymphadenopathy, no thyromegaly, no JVD or carotid bruits. Cardiovascular: RRR, normal S1/S2, no murmurs, rubs, or gallops. Peripheral pulses 2+ and symmetric. No edema. Respiratory: Lungs clear to auscultation bilaterally, no wheezes, rales, or rhonchi. Normal effort. Abdomen: Soft, non-tender, non-distended. Normoactive bowel sounds. No hepatosplenomegaly, no masses. MSK: Full range of motion, no joint swelling or deformity. Normal gait. Skin: Warm, dry, intact. No rashes, lesions, or pallor. Neuro: Alert and oriented x3. Cranial nerves II-XII intact. Strength 5/5 throughout. Sensation intact. Reflexes 2+ symmetric. Normal coordination and gait. Psych: Appropriate mood and affect with noted mood changes, including recent snappiness. Patient reports consistent therapy and medication adherence with citalopram, currently taking 1 pill a day at 10:00 AM and 10:00 PM. Insight into anxiety and mood changes is being developed through therapy. Coding Level of Care Code Est Pt Level 3 (20159) Add On Problem Visit Only Diagnoses Elevated liver enzymes R74.8 Dyslipidemia E78.5 Class 1 obesity E66.811 Adjustment disorder with anxiety F43.22 Assessment & Plan Assessment & Plan (1) Elevated liver enzymes: Code(s): R74.8 - Abnormal levels of other serum enzymes Category: Medical (2) Dyslipidemia: Code(s): E78.5 - Hyperlipidemia, unspecified Category: Medical (3) Class 1 obesity: Code(s): E66.811 - Obesity, class 1 Category: Medical (4) Adjustment disorder with anxiety: Code(s): F43.22 - Adjustment disorder with anxiety Plan Consent Patient was informed and verbally consented to the use of an ambient scribe for clinic note documentation during this visit. Plan 1. Anxiety - Continue with current therapy, which the patient finds beneficial. - Continue citalopram 10 mg twice daily; a 90-day refill was provided. - Reinforce the importance of medication adherence. 2. Elevated Liver Enzymes - The patient will schedule the previously recommended abdominal ultrasound. - Follow up after the ultrasound to review the results. 3. Dyslipidemia - Continue to recommend reducing intake of sodas, snacks, and alcohol. 4. Follow-Up - Schedule a follow-up appointment in one month or after the ultrasound is completed. Discussion Notes I reviewed the patient's progress with her anxiety and noted that her consistent therapy has been beneficial. We discussed a recent period of medication non-adherence and its negative effects, and I reinforced the importance of taking her citalopram as prescribed. I provided a 90-day refill for her citalopram. We also discussed her lab results from November, which showed elevated liver enzymes, elevated triglycerides, and low HDL cholesterol. I advised her to proceed with scheduling the recommended abdominal ultrasound to evaluate her liver. I reiterated the recommendation to reduce intake of sodas, snacks, and alcohol. We agreed to a follow-up visit in about a month, or after her ultrasound is completed. Patient Instructions - Continue taking your citalopram 10 mg twice per day as prescribed. - A 90-day supply has been sent to your pharmacy. - Keep up with your therapy sessions as they have been helpful for your anxiety. - Please schedule the abdominal ultrasound that was previously ordered to check your liver enzymes. - Continue to limit your intake of sodas, snacks, and alcohol. - Schedule a follow-up appointment to see me in about one month, or after you have completed your ultrasound. Medical Decision Making The patient is a 19-year-old female presenting for follow-up of anxiety and review of labs. She is responding well to psychotherapy and medication, though recently experienced a brief period of non-adherence to her citalopram due to a disruption in her routine, which has now resolved. Given her improvement, the plan is to continue her current regimen of citalopram 10mg BID and ongoing therapy. Review of labs from November reveals elevated liver enzymes, elevated triglycerides, and low HDL. The recommendation for an abdominal ultrasound to further evaluate the elevated liver enzymes remains appropriate and was reinforced. The dyslipidemia is being addressed with counseling on lifestyle modifications, including reducing intake of sodas, snacks, and alcohol. Follow-up is scheduled for one month to monitor her progress and review the results of the ultrasound once completed. Total Time Statement 20 min Total time spent caring for the patient today includes pre-visit chart review, documentation, review of laboratory and diagnostic imaging results, medication reconciliation, medically necessary evaluation, counseling on diagnoses, care coordination, ordering appropriate tests and medications, review of tests performed by other providers, reporting test results to the patient, and communication with other healthcare providers.
[2025-03-15 11:59] VITALS: BP 121/65; PULSE 68; TEMP 36.8; O2SAT 98
== END 2025-03-15 12:25 | disposition home or self-care (01) ==
LOC: HO.HMCFMS 11:36
PROVIDERS: PCP Student in an Organized Health Care Education/Training Program; Visit Provider Student in an Organized Health Care Education/Training Program
DX: R74.8 Abnormal levels of other serum enzymes (principal); E78.5 Hyperlipidemia, unspecified; E66.811 Obesity, class 1; F43.22 Adjustment disorder with anxiety